=== PATIENT | female | born 1945 | race Caucasian/White ===

== ENCOUNTER → 2017-12-14 09:54 | Outpatient (CLI) | payer MEDICARE, SELFPAY ==
--- NOTE | 2017-12-14 09:58 | MM_ITS ---
MM Dig screening mamm BI w/CAD ORDERING PHYSICIAN : Flynn Sheldon PATIENT AGE: 72 years GENDER: Female COMPARISON: September 2010,, June 2016, May 2015 bilateral mammogram studies INDICATION: ITS.REASON: SCREENING no hormones. No new complaints. Multiple Previous excisional biopsies. Right and left breast but Family history. 2 sisters with breast cancer. 49 and other 50 results TECHNIQUE: Standard CC and MLO images were obtained. R2 CAD reviewed. FINDINGS: Low-density breast bilaterally. Generalized fatty replacement. With minimal residual fibroglandular elements. No suspicious lesions. No dominant mass. No suspicious calcifications. Bilateral follow-up in one year adequate. IMPRESSION: Stable bilateral mammogram with no significant new findings BI-RADS Category: 1 Negative RECOMMENDED FOLLOW-UP: 1YR 1 YEAR FOLLOW-UP (A letter has been sent to the patient regarding results of the study.)
== END ==
PROVIDERS: Family Provider Internal Medicine; PCP Internal Medicine; Visit Provider Internal Medicine
DX: Z12.31 Encounter for screening mammogram for malignant neoplasm of breast (principal)
CPT/HCPCS: 77067

== ENCOUNTER → 2018-11-28 12:51 | Outpatient (CLI) | payer MEDICARE, SELFPAY ==
--- NOTE | 2018-11-28 13:03 | NVE_ITS ---
Venous Exam Indications: 729.5 Pain in limb. IMPRESSIONS 1. There is no evidence of significant Reflux. 2. No evidence of deep or superficial vein thrombosis involving the right lower extremity Right lower extremity venous duplex evaluation. Doppler flow study including spectral analysis, color and benítez scale imaging. Location: Vascular laboratory. Patient status: Outpatient. Tables: Venous flow and imaging: + +-------+ + Location Overall Flow properties + +-------+ + Right common femoral Patent Normal phasicity; spontaneous; normal augmentation; compressible + +-------+ + Right saphenofemoral junction Patent Compressible + +-------+ + Right profunda femoral Patent Compressible + +-------+ + Right femoral Patent Normal phasicity; spontaneous; normal augmentation; compressible + +-------+ + Right greater saphenous Patent Normal phasicity; spontaneous; normal augmentation; compressible + +-------+ + Right popliteal Patent Normal phasicity; spontaneous; normal augmentation; compressible + +-------+ + Right posterior tibial Patent Compressible + +-------+ + Right peroneal Patent Compressible + +-------+ + Right gastrocnemius Patent Compressible + +-------+ + Right soleal Patent Compressible + +-------+ + (Report amended ) Electronically signed by: Rafael Pizano [id number]
== END ==
PROVIDERS: PCP Internal Medicine; Visit Provider Internal Medicine
DX: M79.661 Pain in right lower leg (principal)
CPT/HCPCS: 93971

== ENCOUNTER 2019-10-15 09:07 | Emergency (ER) | payer MEDICARE, SELFPAY ==
[2019-10-15 09:08] VITALS: BP 110/60; PULSE 87; RESP 16; TEMP 36.6; O2SAT 98; BMI 25.6; BMI 26.6
--- NOTE | 2019-10-15 09:25 | XR_ITS ---
PROCEDURE: XR FOOT RT MIN 3V CLINICAL INDICATION: injury COMPARISON: FTR3 FOOT-RT-3 VIEWS from 12/14/2012 FINDINGS: No fracture or dislocation. No lytic or blastic change. There is normal mineralization. The joint spaces are well-preserved. No significant degenerative/arthritic changes. No erosive changes evident. Other findings:None. IMPRESSION: No acute findings. Dictated by: Celestino Bernabe 10/15/2019 09:42 Electronically signed by Celestino Bernabe in [place] 10/15/2019 09:42
--- NOTE | 2019-10-15 10:18 | PC.NURSE ---
placing post op shoe on pt at this time.
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
[2019-10-15 11:05] VITALS: BP 120/74; PULSE 78; RESP 16; TEMP 36.6; O2SAT 98
== END 2019-10-15 11:06 | disposition home or self-care (01) ==
PROVIDERS: Emergency Provider Family Medicine; PCP Internal Medicine
DX: S90.31XA Contusion of right foot, initial encounter (principal); W22.8XXA Striking against or struck by other objects, initial encounter; Y92.019 Unspecified place in single-family (private) house as the place of occurrence of the external cause; F17.210 Nicotine dependence, cigarettes, uncomplicated; Z88.5 Allergy status to narcotic agent; Z88.8 Allergy status to other drugs, medicaments and biological substances
CPT/HCPCS: 73630; 99282

== ENCOUNTER → 2020-04-28 09:44 | Outpatient (CLI) | payer MEDICARE, SELFPAY ==
--- NOTE | 2020-04-28 09:52 | MR_ITS ---
PROCEDURE: MR HEAD/BRAIN WO CON CLINICAL INDICATION: SYNCOPE, FATIGUE, CONFUSION. COMPARISON: No exams were available for comparison TECHNIQUE: Routine multiplanar multi echo sequences are performed without gadolinium enhancement. FINDINGS: No midline shift, mass effect, intracranial hemorrhage, or hydrocephalus is evident. The cerebellopontine angles, cerebellum, and brainstem have an unremarkable appearance. No evidence of acute infarction. There is generalized atrophy. There are scattered areas of periventricular and subcortical T2 white matter hyperintensity as well as a small area of increased T2 signal in the left tom. This may be due to ischemic gliotic foci from microvascular disease. The pituitary, optic chiasm, corpus callosum, and craniocervical junction have an unremarkable appearance. There is degenerative disc disease at C4-C5 with bulging disc which abuts the anterior aspect of the cord with canal stenosis. This may be better evaluated with MRI of the cervical spine if clinically desired. No mastoid effusion or sinus air-fluid level is evident. IMPRESSION: 1. No acute intracranial finding. 2. Atrophy with chronic ischemic gliotic changes. 3. Degenerative disc disease at C4-C5 with bulging disc and canal stenosis. Dictated by: Rafael Pizano MD 04/28/2020 13:26 Rafael Pizano MD in [place] 04/28/2020 13:26
== END ==
PROVIDERS: PCP Internal Medicine; Visit Provider Internal Medicine
DX: R55 Syncope and collapse (principal); R53.83 Other fatigue; R41.0 Disorientation, unspecified
CPT/HCPCS: 70551

== ENCOUNTER → 2020-04-30 14:28 | Outpatient (CLI) | payer MEDICARE, SELFPAY ==
--- NOTE | 2020-04-30 | CA_ITS ---
APPROVED REPORT EXAM: Comprehensive 2D, Doppler, and color-flow Echocardiogram [employer]ade [employer] Finisher: Jessi Carroll RT(R) Ht: 5 ft 2 in Wt: 147lbs BSA: 1.68 BP: 115/80 mmHg Indications: HTN, DM, syncope, smoker, CAD, murmur, hx rheumatic fever 2D Dimensions LVOT 1.98 cm (M/F) 1.5-2.5 M-Mode Dimensions RVDd 1.13 cm (0.9-2.6) LA Diam 4.02 cm (1.9-4.0) LVDd 4.56 cm (3.5-5.7) Ao Diam 2.48 cm (2.0-3.7) LVDs 3.43 cm (3.5-5.7) IVSd 0.58 cm (0.6-1.1) PWd 0.55 cm (0.6-1.1) EF (Teich) 49.20% FS 24.80% EDV (Teich) 95.40 mL ESV (Teich) 48.50 mL LV Diastology E Decel Time 327.00 (160-240 msec) E/A Ratio 0.6 MED E' 7.30 (< 7 cm/sec) E'/MED E' Ratio 13.25 (>14) LAT E' 8.20 (<10 cm/sec) E/LAT E' Ratio 11.79 (>14) Aortic Valve LVOT Max 120.00 (70-110 cm/s) LVOT VTI 19.50 cm AoV Peak Elias. 172.00 (50-130 cm/s) AO Peak GR. 11.80 mmHg AO Mean GR. 6.40 (<5 mmHg) AO VTI 30.37 (18-25 cm) EMELI (VTI) 1.98 (2.5-4.5 cm2) Mitral Valve MV E Max Elias. 97.00 (40-130 cm/s) MV A Velocity 166.00 (40-130 cm/s) E/A Ratio 0.58 MV Decel. Time 327.00 (160-240 ms) MV PHT 96.00 ms Left Ventricle Left atrium is mildly enlarged, left ventricle is normal size, mild concentric left ventricular hypertrophy, visually estimated ejection fraction 55% with no regional wall motion abnormality, grade 1 diastolic dysfunction seen without tissue Doppler evidence of raise left atrial pressure. Right Ventricle Right atrium and right ventricle are normal size and contractility. Aortic Valve Aortic valve is minimally thickened and fibrosed, there is no aortic stenosis or aortic insufficiency. Mitral Valve Mitral valve has mitral annular calcification which extends in both anterior posterior mitral leaflet, there is no significant mitral stenosis, there is mild mitral regurgitation. Tricuspid Valve Tricuspid valve grossly normal, there is mild tricuspid regurgitation, tricuspid regurgitation jet velocity is inadequate for calculation of the right ventricular systolic pressure. Pulmonic Valve Pulmonic valve is poorly visualized. Great Vessels Aortic root is normal size. Pericardium No significant pericardial effusion noted. Conclusion 1. Mildly enlarged left atrium, normal left ventricular size, mild concentric left ventricular hypertrophy, visually estimated ejection fraction 55% with no regional wall motion abnormality, grade 1 diastolic dysfunction seen without tissue Doppler evidence of raise left atrial pressure. 2. Mitral annular calcification, there is no significant mitral stenosis, there is mild mitral regurgitation. 3. Mild tricuspid regurgitation. 4. No significant pericardial effusion noted. Electronically signed by : Octavio Burton, 04/30/2020 15:40:57
== END ==
PROVIDERS: PCP Internal Medicine; Visit Provider Internal Medicine
DX: R55 Syncope and collapse (principal)
CPT/HCPCS: 93270; 93306

== ENCOUNTER → 2020-12-18 09:40 | Outpatient (CLI) | payer MEDICARE, SELFPAY ==
--- NOTE | 2020-12-18 09:49 | XR_ITS ---
PROCEDURE: XR TIBIA FIBULA RT 2V CLINICAL INDICATION: S/P FALL, RT LATERAL LEG AND ANKLE PAIN/SWELLING COMPARISON: No exams were available for comparison FINDINGS: No fracture or dislocation. No lytic or blastic change. There is normal mineralization. The joint spaces are well-preserved. No significant degenerative/arthritic changes. No erosive changes evident. Other findings:None. IMPRESSION: No acute findings. Dictated by: Rafael Pizano MD 12/18/2020 10:10 Rafael Pizano MD in [place] 12/18/2020 10:10
--- NOTE | 2020-12-18 09:49 | XR_ITS ---
PROCEDURE: XR ANKLE RT MIN 3V this was present on 10/15/2019. CLINICAL INDICATION: S/P FALL, RT LATERAL LEG AND ANKLE PAIN/SWELLING COMPARISON: CR XR FOOT RT MIN 3V from 10/15/2019 CR XR TIBIA FIBULA RT 2V from 12/18/2020 FINDINGS: No fracture or dislocation. No lytic or blastic change. There is normal mineralization. The joint spaces are well-preserved. No significant degenerative/arthritic changes. No erosive changes evident. Other findings:Well-circumscribed 5 mm calcific density is present at the tip of the lateral malleolus consistent with an unfused ossification center or old fracture. IMPRESSION: No acute findings. Dictated by: Rafael Pizano MD 12/18/2020 10:09 Rafael Pizano MD in [place] 12/18/2020 10:09
== END ==
PROVIDERS: PCP Internal Medicine; Visit Provider Internal Medicine
DX: M25.571 Pain in right ankle and joints of right foot (principal)
CPT/HCPCS: 73590; 73610

== ENCOUNTER → 2021-05-03 10:19 | Outpatient (CLI) | payer MEDICARE, SELFPAY ==
--- NOTE | 2021-05-03 10:27 | XR_ITS ---
FINAL REPORT CLINICAL HISTORY: SOA,CONGESTION,COUGH FINDINGS: 2 views of the chest were obtained . The heart is normal in size. The mediastinum is within normal limits. There is a calcified granuloma in the right lung. The lungs are otherwise clear. There is no pneumothorax. Osseous structures are unremarkable. IMPRESSION: No acute cardiopulmonary process. Reviewed, Interpreted and Dictated by Bakari Ferrara III, MD Transcribed by Elizabeth Geller Authenticated by Bakari Ferrara III, MD on 05/03/2021 04:18:24 PM [facility]
== END ==
PROVIDERS: PCP Internal Medicine; Visit Provider Internal Medicine
DX: R06.02 Shortness of breath (principal); R09.89 Other specified symptoms and signs involving the circulatory and respiratory systems; Z20.822 Contact with and (suspected) exposure to COVID-19; R05.9 Cough, unspecified
CPT/HCPCS: 71046; C9803; U0003; U0005

== ENCOUNTER → 2021-05-03 11:21 | Outpatient (CLI) | payer MEDICARE, SELFPAY | PROVIDERS: PCP Internal Medicine; Visit Provider Nurse Practitioner | DX: U07.1 COVID-19 (principal) | CPT/HCPCS: C9803; U0003; U0005 ==

== ENCOUNTER → 2021-06-21 12:34 | Outpatient (CLI) | payer MEDICARE, SELFPAY ==
[2021-06-21 14:26] LABS: Basophils # 0.1 K/mm3 (0-0.2); Basophils % 1.3 % (0.1-2.0); Eosinophils # 0.2 K/mm3 (0.0-0.4); Hematocrit 40.7 % (37.0-47.0); Hemoglobin 13.4 g/dL (12.2-16.2); Lymphocytes # 1.6 K/mm3 (0.7-4.5); Lymphocytes % 21.6 % (10-50); Mean Corpuscular Hemoglobin 29.6 pg (27.0-31.2); Mean Corpuscular Volume 89.6 fl (81-99); Mean Platelet Volume 10.1 fl (7.4-10.4); Monocytes # 0.5 K/mm3 (0.1-1.0); Monocytes % 6.3 % (1.7-9.3); Neutrophils # 4.9 K/mm3 (1.8-7.8); Neutrophils % 67.8 % (37.0-80.0); Platelet Count 266 K/mm3 (142-424); Red Blood Count 4.54 M/mm3 (4.20-5.40); Red Cell Distribution Width 14.4 % (11.5-17.5); White Blood Count 7.3 K/mm3 (4.8-10.8)
[2021-06-21 15:22] LABS: Alanine Aminotransferase 16 U/L (12-78); Albumin Level 4.2 g/dl (3.5-5.0); Alkaline Phosphatase 80 U/L (38-126); Anion Gap 9.5 mEq/L (5-15); Aspartate Amino Transferase 25 U/L (14-36); Bilirubin,Total 0.4 mg/dl (0.2-1.3); Blood Urea Nitrogen 20 mg/dl (7-17); Calcium 8.7 mg/dl (8.4-10.2); Carbon Dioxide 28 mmol/L (22.0-30.0); Chloride 105 mmol/L (98-107); Cholesterol 183 mg/dl (140-200); Estimated Glomerular Filt Rate 70 ml/min (>60); GFR (African American) 85 ML/MIN (>60); Globulin 2.1 g/dL (1.3-3.2); Glucose 136 mg/dl (74-100); HDL Cholesterol 46 mg/dl (40-60); Potassium 4.5 mmoL/L (3.5-5.1); Sodium 138 mmol/L (136-145); Total Protein,Serum 6.3 g/dl (6.3-8.2); Triglycerides 101 mg/dl (30-150); VLDL Cholesterol 20 mg/dL (0-40)
[2021-06-21 15:27] LABS: Hemoglobin A1C 6.9 % (4.0-6.0)
[2021-06-21 15:33] LABS: Direct LDL Cholesterol 121.19 mg/dL (100-129)
[2021-06-21 15:52] LABS: Thyroid Stimulating Hormone 2.28 uIU/mL (0.465-4.68)
== END ==
PROVIDERS: Visit Provider Internal Medicine
DX: I10 Essential (primary) hypertension (principal); E03.9 Hypothyroidism, unspecified; E11.40 Type 2 diabetes mellitus with diabetic neuropathy, unspecified; J44.9 Chronic obstructive pulmonary disease, unspecified; M79.7 Fibromyalgia; Z79.84 Long term (current) use of oral hypoglycemic drugs
CPT/HCPCS: 80053; 80061; 83036; 84443; 85025

== ENCOUNTER → 2021-06-25 15:36 | Outpatient (CLI) | payer MEDICARE, SELFPAY ==
--- NOTE | 2021-06-25 15:38 | MM_ITS ---
PROCEDURE INFORMATION: Exam: MG Bilateral Screening 3D Mammography Exam date and time: 06/25/2021 3:38 PM Age: 76 years old Clinical indication: Encounter for screening mammogram for malignant neoplasm of breast . Strong family history of premenopausal breast carcinoma. TECHNIQUE: Imaging protocol: Bilateral Screening tomosynthesis and 2D mammography including computer-aided detection (CAD) when performed. COMPARISON: 1. MG SCBI MM Dig screening mamm BI w/CAD 12/14/2017 10:07 AM 2. MG DMDXUAVL DIG MAMM-DX UNI A/VWS-LT W/CAD 07/26/2016 2:23 PM 3. MG DMSB DIG MAMM-SCREEN DOMENICO W/CAD 07/14/2016 9:25 AM FINDINGS: MAMMOGRAPHY: Breast composition: There are scattered areas of fibroglandular density. Mass: No suspicious masses. Architectural distortion: No suspicious distortion. Calcifications: No suspicious calcifications. Asymmetric density: None. Skin thickening: None. Axillary adenopathy: None. IMPRESSION: No mammographic evidence of malignancy. Annual screening is recommended unless otherwise clinically indicated. ASSESSMENT: BI-RADS Category 1: Negative
== END ==
PROVIDERS: PCP Internal Medicine; Visit Provider Internal Medicine
DX: Z12.31 Encounter for screening mammogram for malignant neoplasm of breast (principal)
CPT/HCPCS: 77063; 77067

== ENCOUNTER → 2021-09-02 12:51 | Outpatient (CLI) | payer MEDICARE, SELFPAY ==
[2021-09-02 13:45] VITALS: PULSE 75
--- NOTE | 2021-09-02 14:42 | CT_ITS ---
FINAL REPORT CLINICAL HISTORY: . lung screening, current smoker, 1/2 pack per day x 68 years FINDINGS: CT CHEST SCREENING CTDI vol (mGy): 2.90 DLP (mGy-cm): 101.86 Axial images were obtained from the lung apex to the mid abdomen by computed tomography. Low-dose protocol was utilized. FINDINGS: CHEST: There is no axillary adenopathy. There is no hilar or mediastinal adenopathy. The heart is proper size. There is no pericardial or pleural effusion. Limited images of the upper abdomen demonstrate post cholecystectomy. Lung window images demonstrate mild scarring. There is a 5 mm left lower lobe nodule on image 45. There is a calcified granuloma in the right lower lobe. There is a 2 mm left lower lobe nodule on image 37. No other nodules identified. IMPRESSION: Lung RADS category 2. Recommend 12 month follow-up low-dose chest CT. Left lower lobe nodules as above. Reviewed, Interpreted and Dictated by Bakari Ferrara III, MD Transcribed by Bettina Lora Authenticated by Bakari Ferrara III, MD on 09/02/2021 04:49:19 PM [facility]
[2021-09-02 15:22] LABS: Basophils # 0.3 K/mm3 (0-0.2); Basophils % 3.5 % (0.1-2.0); Eosinophils # 0.3 K/mm3 (0.0-0.4); Eosinophils % 3.8 % (0.1-12.0); Hematocrit 44.6 % (37.0-47.0); Hemoglobin 14.8 g/dL (12.2-16.2); Lymphocytes # 2.2 K/mm3 (0.7-4.5); Lymphocytes % 27.1 % (10-50); Mean Corpuscular HGB Conc 33.2 g/dL (31.8-35.4); Mean Corpuscular Hemoglobin 29.5 pg (27.0-31.2); Mean Corpuscular Volume 88.8 fl (81-99); Mean Platelet Volume 7.9 fl (7.4-10.4); Monocytes # 0.5 K/mm3 (0.1-1.0); Monocytes % 6.2 % (1.7-9.3); Neutrophils # 4.8 K/mm3 (1.8-7.8); Neutrophils % 59.4 % (37.0-80.0); Platelet Count 278 K/mm3 (142-424); Red Blood Count 5.02 M/mm3 (4.20-5.40); White Blood Count 8.1 K/mm3 (4.8-10.8)
[2021-09-02 15:27] LABS: D-Dimer 0.73 ug/mL (0.0-0.5)
[2021-09-12 11:09] LABS: D001-IgE D pteronyssinus <0.10 kU/L (Class 0); D002-IgE D farinae <0.10 kU/L (Class 0); E001-IgE Cat Dander <0.10 kU/L (Class 0); E005-IgE Dog Dander <0.10 kU/L (Class 0); E072-IgE Mouse Urine <0.10 kU/L (Class 0); G002-IgE Bermuda Grass <0.10 kU/L (Class 0); G006-IgE Timothy Grass <0.10 kU/L (Class 0); I006-IgE Cockroach, German <0.10 kU/L (Class 0); Immunoglobulin E, Total 2 IU/mL (6-495); M001-IgE Penicillium chrysogen <0.10 kU/L (Class 0); M002-IgE Cladosporium herbarum <0.10 kU/L (Class 0); M003-IgE Aspergillus fumigatus <0.10 kU/L (Class 0); M006-IgE Alternaria alternata <0.10 kU/L (Class 0); T001-IgE Maple/Box Elder <0.10 kU/L (Class 0); T003-IgE Common Silver Birch <0.10 kU/L (Class 0); T006-IgE Cedar, Mountain <0.10 kU/L (Class 0); T007-IgE Oak, White <0.10 kU/L (Class 0); T008-IgE Elm, American <0.10 kU/L (Class 0); T010-IgE Walnut <0.10 kU/L (Class 0); T011-IgE Maple Leaf Sycamore <0.10 kU/L (Class 0); T014-IgE Cottonwood <0.10 kU/L (Class 0); T015-IgE Ash, White <0.10 kU/L (Class 0); T022-IgE Pecan, Hickory <0.10 kU/L (Class 0); T070-IgE White Mulberry <0.10 kU/L (Class 0); W001-IgE Ragweed, Short <0.10 kU/L (Class 0); W011-IgE Thistle, Russian <0.10 kU/L (Class 0); W014-IgE Pigweed, Common <0.10 kU/L (Class 0); W018-IgE Sheep Sorrel <0.10 kU/L (Class 0)
== END ==
PROVIDERS: PCP Internal Medicine; Visit Provider Internal Medicine Pulmonary Disease
DX: J45.909 Unspecified asthma, uncomplicated (principal); F17.210 Nicotine dependence, cigarettes, uncomplicated
CPT/HCPCS: 36415; 71271; 82785; 85025; 85378; 86003; 94060; 94618; 94640; 94727; 94729

== ENCOUNTER → 2021-09-13 09:43 | Outpatient (CLI) | payer MEDICARE, SELFPAY ==
--- NOTE | 2021-09-13 09:44 | NM_ITS ---
FINAL REPORT TECHNIQUE: The patient was injected with 7.90 mCi of technetium 99m MAA. 33.4 mCi of aerosolized DTPA was utilized for ventilation. Images of the lungs were obtained in multiple projections. CLINICAL HISTORY: SOB recent cxr and ct lung screening 10:30am 33.4 mci tc dtpa 11:05am 7.90 mci tc maa FINDINGS: There are no segmental diffusion defects. There are no mismatch defects to suggest pulmonary embolism. IMPRESSION: Low probability for pulmonary embolism. Reviewed, Interpreted and Dictated by Anahy Forrest MD Transcribed by Ellen Cruz Authenticated by Anahy Forrest MD on 09/13/2021 01:21:36 PM [facility]
== END ==
PROVIDERS: PCP Internal Medicine; Visit Provider Internal Medicine Pulmonary Disease
DX: R79.89 Other specified abnormal findings of blood chemistry (principal); R06.09 Other forms of dyspnea
CPT/HCPCS: 78582; A9540; A9567

== ENCOUNTER → 2021-12-17 14:44 | Outpatient (CLI) | payer MEDICARE, SELFPAY ==
[2021-12-17 15:41] LABS: Hemoglobin A1C 6.2 % (4.0-6.0)
[2021-12-17 17:43] LABS: Alanine Aminotransferase 16 U/L (12-78); Albumin Level 3.9 g/dl (3.5-5.0); Albumin/Globulin Ratio 1.7 (1.1-1.8); Alkaline Phosphatase 99 U/L (38-126); Anion Gap 12.8 mEq/L (5-15); Aspartate Amino Transferase 25 U/L (14-36); Blood Urea Nitrogen 16 mg/dl (7-17); Calcium 8.7 mg/dl (8.4-10.2); Carbon Dioxide 25 mmol/L (22.0-30.0); Chloride 108 mmol/L (98-107); Chol/HDL Ratio 3.9 (1-3.5); Cholesterol 176 mg/dl (140-200); Estimated Glomerular Filt Rate 61 ml/min (>60); GFR (African American) 74 ML/MIN (>60); Globulin 2.3 g/dL (1.3-3.2); Glucose 132 mg/dl (74-100); HDL Cholesterol 45 mg/dl (40-60); Magnesium 1.7 mg/dl (1.6-2.3); Potassium 4.8 mmoL/L (3.5-5.1); Sodium 141 mmol/L (136-145); Total Protein,Serum 6.2 g/dl (6.3-8.2); Triglycerides 76 mg/dl (30-150); VLDL Cholesterol 15 mg/dL (0-40)
[2021-12-17 17:59] LABS: Bilirubin,Total < 0.1 mg/dl (0.2-1.3)
[2021-12-19 10:01] LABS: Direct LDL Cholesterol 106 mg/dL (100-129)
== END ==
PROVIDERS: PCP Internal Medicine; Visit Provider Internal Medicine
DX: E11.42 Type 2 diabetes mellitus with diabetic polyneuropathy (principal); E78.5 Hyperlipidemia, unspecified; K75.81 Nonalcoholic steatohepatitis (NASH); M79.7 Fibromyalgia; I10 Essential (primary) hypertension; Z79.84 Long term (current) use of oral hypoglycemic drugs
CPT/HCPCS: 80053; 80061; 83036; 83735

== ENCOUNTER → 2022-03-22 08:59 | Outpatient (CLI) | payer MEDICARE, SELFPAY ==
--- NOTE | 2022-03-22 09:09 | XR_ITS ---
FINAL REPORT TECHNIQUE: 5 views CLINICAL HISTORY: NECK PAIN x 1 month FINDINGS: CERVICAL SPINE Five views of the cervical spine for obtained. There is no fracture present. There is 4 mm of retrolisthesis of C4 on C5. There is moderate diffuse degenerative disc disease. There is bony neural foraminal narrowing bilaterally most pronounced at C4-5. IMPRESSION: Moderate degenerative changes without fracture. Reviewed, Interpreted and Dictated by Summer Aleman MD Transcribed by Violette Forbes Authenticated and [facility]
== END ==
PROVIDERS: PCP Internal Medicine; Visit Provider Internal Medicine
DX: M54.2 Cervicalgia (principal)
CPT/HCPCS: 72050

== ENCOUNTER → 2022-05-13 13:27 | Outpatient (CLI) | payer MEDICARE, SELFPAY ==
[2022-05-13 13:46] LABS: Basophils # 0.1 K/mm3 (0-0.2); Basophils % 1.1 % (0.1-2.0); Eosinophils # 0.2 K/mm3 (0.0-0.4); Eosinophils % 2.6 % (0.1-12.0); Hematocrit 40.6 % (37.0-47.0); Hemoglobin 13.5 g/dL (12.2-16.2); Lymphocytes # 1.8 K/mm3 (0.7-4.5); Lymphocytes % 23.5 % (10-50); Mean Corpuscular HGB Conc 33.3 g/dL (31.8-35.4); Mean Corpuscular Hemoglobin 29.1 pg (27.0-31.2); Mean Corpuscular Volume 87.4 fl (81-99); Mean Platelet Volume 9.5 fl (7.4-10.4); Monocytes # 0.4 K/mm3 (0.1-1.0); Monocytes % 5.4 % (1.7-9.3); Neutrophils # 5.3 K/mm3 (1.8-7.8); Neutrophils % 67.5 % (37.0-80.0); Platelet Count 266 K/mm3 (142-424); Red Blood Count 4.65 M/mm3 (4.20-5.40); White Blood Count 7.8 K/mm3 (4.8-10.8)
[2022-05-13 14:40] LABS: Erythrocyte Sedimentation Rate 15 mm/hr (0-30)
[2022-05-13 15:26] LABS: Alanine Aminotransferase 17 U/L (12-78); Albumin Level 4.3 g/dl (3.5-5.0); Albumin/Globulin Ratio 1.9 (1.1-1.8); Alkaline Phosphatase 86 U/L (38-126); Amylase 62 U/L (30-110); Anion Gap 11.3 mEq/L (5-15); Aspartate Amino Transferase 25 U/L (14-36); Bilirubin,Total 0.3 mg/dl (0.2-1.3); Blood Urea Nitrogen 20 mg/dl (7-17); Calcium 8.4 mg/dl (8.4-10.2); Carbon Dioxide 26 mmol/L (22.0-30.0); Chloride 106 mmol/L (98-107); Estimated Glomerular Filt Rate 61 ml/min (>60); GFR (African American) 74 ML/MIN (>60); Globulin 2.3 g/dL (1.3-3.2); Glucose 134 mg/dl (74-100); Potassium 4.3 mmoL/L (3.5-5.1); Sodium 139 mmol/L (136-145); Total Protein,Serum 6.6 g/dl (6.3-8.2)
== END ==
PROVIDERS: PCP Internal Medicine; Visit Provider Internal Medicine
DX: E11.42 Type 2 diabetes mellitus with diabetic polyneuropathy (principal); I10 Essential (primary) hypertension; E78.5 Hyperlipidemia, unspecified; M79.7 Fibromyalgia; Z79.84 Long term (current) use of oral hypoglycemic drugs
CPT/HCPCS: 80053; 82150; 85025; 85651

== ENCOUNTER → 2022-05-23 07:53 | Outpatient (CLI) | payer MEDICARE, SELFPAY ==
--- NOTE | 2022-05-23 08:00 | CT_ITS ---
FINAL REPORT CLINICAL HISTORY: ABDOMINAL PAIN COMPARISON: 06/09/2016 FINDINGS: Axial CT images of the abdomen and pelvis were obtained without intravenous contrast. Oral contrast was administered. Coronal reformatted images were also obtained.This study was performed with techniques to keep radiation doses as low as reasonably achievable (ALARA). Individualized dose reduction techniques using automated exposure control or adjustment of mA and/or kV according to the patient's size were employed. Abdomen: There is mild bibasilar atelectasis. There is no evidence of renal stone or hydronephrosis. There are postoperative changes from cholecystectomy. The liver, spleen and pancreas have an unremarkable, unenhanced appearance. No inflammatory process is identified. There are diffuse vascular calcifications. Pelvis: Images of the pelvis reveal no evidence of ureteral dilation or ureteral stone. The appendix is normal. No mass or abnormal fluid collection is identified. There is a small right inguinal hernia containing fat. IMPRESSION: No acute intra-abdominal or intrapelvic abnormality. Reviewed, Interpreted and Dictated by Bakari Ferrara III, MD Transcribed by Violette Forbes Authenticated and [facility]
== END ==
PROVIDERS: PCP Internal Medicine; Visit Provider Internal Medicine
DX: R10.9 Unspecified abdominal pain (principal)
CPT/HCPCS: 74176

== ENCOUNTER → 2022-06-24 12:47 | Outpatient (CLI) | payer MEDICARE, SELFPAY ==
[2022-06-24 13:17] LABS: Basophils # 0.1 K/mm3 (0-0.2); Basophils % 1.2 % (0.1-2.0); Eosinophils # 0.2 K/mm3 (0.0-0.4); Eosinophils % 3.1 % (0.1-12.0); Hematocrit 42.4 % (37.0-47.0); Hemoglobin 14.1 g/dL (12.2-16.2); Lymphocytes # 1.6 K/mm3 (0.7-4.5); Lymphocytes % 21.3 % (10-50); Mean Corpuscular HGB Conc 33.2 g/dL (31.8-35.4); Mean Corpuscular Hemoglobin 28.9 pg (27.0-31.2); Mean Corpuscular Volume 87.2 fl (81-99); Mean Platelet Volume 9.1 fl (7.4-10.4); Monocytes # 0.4 K/mm3 (0.1-1.0); Monocytes % 4.9 % (1.7-9.3); Neutrophils # 5.2 K/mm3 (1.8-7.8); Neutrophils % 69.5 % (37.0-80.0); Platelet Count 266 K/mm3 (142-424); Red Blood Count 4.86 M/mm3 (4.20-5.40); White Blood Count 7.5 K/mm3 (4.8-10.8)
[2022-06-24 13:22] LABS: Creatinine,Urine Random 38 mg/dL (Not Estab.)
[2022-06-24 13:26] LABS: Microalbumin/Creatinine Ratio 16.8
[2022-06-24 13:33] LABS: Hemoglobin A1C 6.4 % (4.0-6.0)
[2022-06-24 14:48] LABS: Alanine Aminotransferase 16 U/L (12-78); Albumin Level 4.4 g/dl (3.5-5.0); Albumin/Globulin Ratio 2.2 (1.1-1.8); Alkaline Phosphatase 89 U/L (38-126); Anion Gap 11.6 mEq/L (5-15); Aspartate Amino Transferase 26 U/L (14-36); Bilirubin,Total 0.4 mg/dl (0.2-1.3); Blood Urea Nitrogen 21 mg/dl (7-17); Calcium 8.9 mg/dl (8.4-10.2); Carbon Dioxide 26 mmol/L (22.0-30.0); Chloride 104 mmol/L (98-107); Chol/HDL Ratio 3.6 (1-3.5); Cholesterol 182 mg/dl (140-200); Estimated Glomerular Filt Rate 54 ml/min (>60); GFR (African American) 65 ML/MIN (>60); Glucose 141 mg/dl (74-100); HDL Cholesterol 51 mg/dl (40-60); Potassium 4.6 mmoL/L (3.5-5.1); Sodium 137 mmol/L (136-145); Total Protein,Serum 6.4 g/dl (6.3-8.2); Triglycerides 84 mg/dl (30-150); VLDL Cholesterol 17 mg/dL (0-40)
[2022-06-24 14:58] LABS: Direct LDL Cholesterol 112.95 mg/dL (100-129)
[2022-06-24 15:19] LABS: Thyroid Stimulating Hormone 4.28 uIU/mL (0.465-4.68)
[2022-06-27 11:22] LABS: T4 (Thyroxine) 8.7 ug/dl (5.53-11.0)
== END ==
PROVIDERS: PCP Internal Medicine; Visit Provider Internal Medicine
DX: E03.9 Hypothyroidism, unspecified (principal); E11.42 Type 2 diabetes mellitus with diabetic polyneuropathy; E78.5 Hyperlipidemia, unspecified; I10 Essential (primary) hypertension; M79.7 Fibromyalgia; Z79.84 Long term (current) use of oral hypoglycemic drugs
CPT/HCPCS: 80053; 80061; 82043; 82570; 83036; 84436; 84439; 84443; 85025

== ENCOUNTER → 2022-10-13 10:57 | Outpatient (CLI) | payer MEDICARE, SELFPAY ==
--- NOTE | 2022-10-13 10:57 | CT_ITS ---
FINAL REPORT CLINICAL HISTORY: lung cancer screening, smoker, 1/2 ppd x 66 years. copd FINDINGS: CT CHEST LOW DOSE SCREENING HISTORY: Screening exam for lung cancer. Current smoker, 33 pack year smoking history DOSE: CTDIvol: 2.9 mGy, DLP: 96.38 mGy*cm COMPARISON: 09/02/2021. TECHNIQUE: Axial CT without IV contrast administration using low dose protocol FINDINGS: There is a calcified right hilar node present, as well as a calcified granuloma in the right lower lobe. The 5 mm nodule in the medial aspect of the left lower lobe seen on the prior CT is unchanged in appearance. On today's exam it is seen in image number 48. There is also a 2 mm focus of increased density seen in the left lower lobe on image number 41, also stable since the prior exam. There is mild chronic fibrotic change in the lung bases. No pulmonary lesions are seen suspicious for neoplasm. No pleural or pericardial effusion is seen . No adenopathy or mass lesion is present . IMPRESSION: 2 small nodules noted in the left lower lobe unchanged since the prior chest CT of 2021. No new parenchymal abnormalities are identified. LUNG RADS CATEGORY 2 RECOMMENDATION: 12 month LDCT follow up Reviewed, Interpreted and Dictated by Jose Juan Abbasi MD Transcribed by Val Vogel Authenticated and [facility]
== END ==
PROVIDERS: PCP Internal Medicine; Visit Provider Internal Medicine Pulmonary Disease
DX: Z87.891 Personal history of nicotine dependence (principal); Z12.2 Encounter for screening for malignant neoplasm of respiratory organs
CPT/HCPCS: 71271

== ENCOUNTER → 2022-12-30 12:59 | Outpatient (CLI) | payer MEDICARE, SELFPAY ==
[2022-12-30 15:04] LABS: Hemoglobin A1C 6.3 % (4.0-6.0)
[2022-12-30 15:05] LABS: Alanine Aminotransferase 19 U/L (12-78); Albumin Level 4.2 g/dl (3.5-5.0); Albumin/Globulin Ratio 1.7 (1.1-1.8); Alkaline Phosphatase 95 U/L (38-126); Anion Gap 13.5 mEq/L (5-15); Aspartate Amino Transferase 28 U/L (14-36); Bilirubin,Total 0.3 mg/dl (0.2-1.3); Blood Urea Nitrogen 21 mg/dl (7-17); Calcium 8.7 mg/dl (8.4-10.2); Carbon Dioxide 25 mmol/L (22.0-30.0); Chloride 105 mmol/L (98-107); Chol/HDL Ratio 4.3 (1-3.5); Cholesterol 188 mg/dl (140-200); Estimated Glomerular Filt Rate 54 ml/min (>60); GFR (African American) 65 ML/MIN (>60); Globulin 2.5 g/dL (1.3-3.2); Glucose 127 mg/dl (74-100); HDL Cholesterol 44 mg/dl (40-60); Potassium 4.5 mmoL/L (3.5-5.1); Sodium 139 mmol/L (136-145); Total Protein,Serum 6.7 g/dl (6.3-8.2); Triglycerides 126 mg/dl (30-150); VLDL Cholesterol 25 mg/dL (0-40)
[2022-12-30 15:16] LABS: Direct LDL Cholesterol 108.64 mg/dL (100-129)
[2022-12-30 15:22] LABS: 25-OH Vitamin D, Total 67.6 ng/mL (30-100)
== END ==
PROVIDERS: PCP Internal Medicine; Visit Provider Internal Medicine
DX: E11.42 Type 2 diabetes mellitus with diabetic polyneuropathy (principal); E55.9 Vitamin D deficiency, unspecified; E03.9 Hypothyroidism, unspecified; E78.5 Hyperlipidemia, unspecified; I10 Essential (primary) hypertension; K75.81 Nonalcoholic steatohepatitis (NASH); M79.7 Fibromyalgia
CPT/HCPCS: 80053; 80061; 82306; 83036

== ENCOUNTER 2023-06-30 14:38 | Outpatient (CLI) | payer MEDICARE, SELFPAY ==
[2023-06-30 15:16] LABS: Basophils # 0.1 K/mm3 (0-0.2); Basophils % 0.9 % (0.1-2.0); Eosinophils # 0.2 K/mm3 (0.0-0.4); Eosinophils % 2.7 % (0.1-12.0); Hematocrit 42.6 % (37.0-47.0); Hemoglobin 13.6 g/dL (12.2-16.2); Lymphocytes # 1.6 K/mm3 (0.7-4.5); Lymphocytes % 22.3 % (10-50); Mean Corpuscular Hemoglobin 29.4 pg (27.0-31.2); Mean Corpuscular Volume 91.9 fl (81-99); Mean Platelet Volume 8.9 fl (7.4-10.4); Monocytes # 0.4 K/mm3 (0.1-1.0); Neutrophils # 4.9 K/mm3 (1.8-7.8); Neutrophils % 68.1 % (37.0-80.0); Platelet Count 218 K/mm3 (142-424); Red Blood Count 4.64 M/mm3 (4.20-5.40); Red Cell Distribution Width 14.1 % (11.5-17.5); White Blood Count 7.2 K/mm3 (4.8-10.8)
[2023-06-30 15:35] LABS: Creatinine,Urine Random 85 mg/dL (Not Estab.)
[2023-06-30 15:41] LABS: Microalbumin/Creatinine Ratio 8.9
[2023-06-30 16:04] LABS: Alanine Aminotransferase 18 U/L (12-78); Albumin Level 4.2 g/dl (3.5-5.0); Alkaline Phosphatase 95 U/L (38-126); Anion Gap 13.7 mEq/L (5-15); Aspartate Amino Transferase 29 U/L (14-36); Bilirubin,Total 0.4 mg/dl (0.2-1.3); Blood Urea Nitrogen 20 mg/dl (7-17); Calcium 8.9 mg/dl (8.4-10.2); Carbon Dioxide 25 mmol/L (22.0-30.0); Chloride 105 mmol/L (98-107); Chol/HDL Ratio 4.2 (1-3.5); Cholesterol 180 mg/dl (140-200); Estimated Glomerular Filt Rate 61 ml/min (>60); GFR (African American) 74 ML/MIN (>60); Globulin 2.1 g/dL (1.3-3.2); Glucose 147 mg/dl (74-100); HDL Cholesterol 43 mg/dl (40-60); Potassium 4.7 mmoL/L (3.5-5.1); Sodium 139 mmol/L (136-145); Total Protein,Serum 6.3 g/dl (6.3-8.2); Triglycerides 107 mg/dl (30-150); VLDL Cholesterol 21 mg/dL (0-40)
[2023-06-30 16:15] LABS: Direct LDL Cholesterol 102.88 mg/dL (100-129)
[2023-06-30 16:17] LABS: Hemoglobin A1C 6.9 % (4.0-6.0)
[2023-06-30 16:33] LABS: Thyroid Stimulating Hormone 2.22 uIU/mL (0.465-4.68)
== END 2023-06-30 23:59 ==
LOC: LAB.DROPOF 14:38
PROVIDERS: PCP Internal Medicine; Visit Provider Internal Medicine
DX: E11.42 Type 2 diabetes mellitus with diabetic polyneuropathy (principal); I10 Essential (primary) hypertension; E03.9 Hypothyroidism, unspecified; E78.5 Hyperlipidemia, unspecified; K75.81 Nonalcoholic steatohepatitis (NASH); M79.7 Fibromyalgia; J44.9 Chronic obstructive pulmonary disease, unspecified; Z79.84 Long term (current) use of oral hypoglycemic drugs; F17.210 Nicotine dependence, cigarettes, uncomplicated
CPT/HCPCS: 80053; 80061; 82043; 82570; 83036; 84443; 85025

== ENCOUNTER 2023-07-03 09:23 | Outpatient (CLI) | payer MEDICARE, SELFPAY ==
--- NOTE | 2023-07-03 09:35 | XR_ITS ---
FINAL REPORT CLINICAL HISTORY: Left shoulder pain with decreased range of motion FINDINGS: LEFT SHOULDER Two views demonstrate no acute fracture or dislocation. There are mild degenerative changes.. The visualized bony structures are well aligned. No soft tissue abnormality is seen. IMPRESSION: Degenerative changes with no acute process. Reviewed, Interpreted and Dictated by Bakari Ferrara III, MD Transcribed by Ellen Cruz Authenticated and [facility]
--- NOTE | 2023-07-03 09:36 | XR_ITS ---
FINAL REPORT CLINICAL HISTORY: Left knee pain FINDINGS: LEFT KNEE: Three views of the left knee were obtained. There is no acute fracture or dislocation. There are mild degenerative changes. There is a small joint effusion. Mild vascular calcifications are noted. Soft tissues are unremarkable. IMPRESSION: Mild degenerative changes with a small joint effusion. Reviewed, Interpreted and Dictated by Bakari Ferrara III, MD Transcribed by Ellen Cruz Authenticated and [facility]
== END 2023-07-03 23:59 ==
PROVIDERS: PCP Internal Medicine; Visit Provider Internal Medicine
DX: M25.512 Pain in left shoulder (principal); M25.561 Pain in right knee
CPT/HCPCS: 73030; 73562

== ENCOUNTER 2023-09-05 09:36 | Day surgery (SDC) | payer MEDICARE, SELFPAY ==
[2023-08-31 14:08] VITALS: BMI 27.8
[2023-09-05] MEDS: PHENYLEPHRINE 2.5% OPHTH SOLN 2ML OP ×3 (11:00→11:01)
[2023-09-05] MEDS: TETRACAINE 0.5% OPTH SOL 15ML OP ×3 (11:00→11:01)
[2023-09-05] MEDS: CYCLOPENTOLATE 2% OPHTH SOLN 2ML BOTTLE OP ×3 (11:00→11:01)
[2023-09-05 11:05] VITALS: BP 145/88; PULSE 72; RESP 18; TEMP 36.5; O2SAT 98
[2023-09-05 11:18] LABS: POC Glucose,Bedside 122 (70-110)
[2023-09-05 11:56] VITALS: BP 173/95; PULSE 73; RESP 18; TEMP 36.6; O2SAT 97
[2023-09-05 12:01] VITALS: BP 173/90; PULSE 79; RESP 18; TEMP 36.6; O2SAT 98
[2023-09-05] MEDS: TIMOLOL 0.5% OPTH SOLN 5ML OP (12:04)
[2023-09-05 12:06] VITALS: BP 175/83; PULSE 79; RESP 18; TEMP 36.6; O2SAT 99
[2023-09-05] MEDS: TOBRAMYCIN/DEX OPTH SUSP 2.5ML OP (12:06)
[2023-09-05] MEDS: LIDOCAINE 1% PF 2ML AMPULE 2 ML IJ (12:07)
[2023-09-05] MEDS: MIDAZOLAM 2MG/2ML VIAL 1 MG IV (12:07)
[2023-09-05] MEDS: SODIUM CHLORIDE 0.9% 10ML FLUSH SYRINGE 10 ML IV (12:08)
[2023-09-05 12:11] VITALS: BP 164/78; PULSE 78; RESP 18; TEMP 36.6; O2SAT 98
--- NOTE | 2023-09-05 12:35 | P.PCN_ITS ---
[facility] Procedure Note Date: 09/05/23 Time: 12:35 Procedure Note:: Preoperative Diagnosis: Cataract combined NS Cortical Complex [Right] Eye Postop diagnosis: same Operation: Microscopic phacoemulsification with intraocular lens implant [Right] Eye Specimen: None Blood Loss: None The patient was examined in the office with a complaint of poor vision in the [right] eye. The patient reports that this interferes with ADLs such as reading, watching TV and/or driving or the vision is like looking through a foggy haze and is very troubling. The patient was examined and found to have a visually significant cataract with best corrected vision of [20/400] by refraction and/or glare testing. Treatment options, risks and benefits were explained and the patient elected to have cataract surgery in an attempt to improve their vision. The patient had the eye anesthetized with topical tetracaine, the eye ways prepped and draped in the usual fashion for cataract surgery. A paracentesis and a temporal keratotomy were made. 0.2cc of 1% lidocaine PF was placed into the anterior chamber. And aqueous/viscoelastic exchange was done and a 360 degree capsulorexis was performed. Through hydrodissection and delineation with BSS on a cannula was done. The lens nucleus was phecoemulsified with CDE of [7.09]. Residual cortical material was removed using automated I&A The capsular bag was deepened with viscoelastica and a PCIOL was placed in the capsular bag with good centration and stability. Residual viscoelastic was removed using automated I&A. The keratotomy incision was hydrated with BSS on a cannula. The wound were checked and found to be water tight. IOP was checked digitally and adjusted as needed so as not to be too high. 1 drop of timolol 0.5%, ofloxacin, prednisolone acetate and ketorolac was instilled and eye shield taped over the eye. The patient was taken to recovery in good condition and will be seen postoperatively.
== END 2023-09-05 12:32 | disposition home or self-care (01) ==
PROVIDERS: PCP Internal Medicine; Visit Provider Ophthalmology
PROC: (CPT 66984; principal; 2023-09-05 12:30)
DX: H25.11 Age-related nuclear cataract, right eye (principal); E11.36 Type 2 diabetes mellitus with diabetic cataract; H53.8 Other visual disturbances; Z79.84 Long term (current) use of oral hypoglycemic drugs
CPT/HCPCS: 66984; 82962; V2632

== ENCOUNTER 2023-09-19 09:35 | Day surgery (SDC) | payer MEDICARE, SELFPAY ==
[2023-09-14 11:02] VITALS: BMI 28.1
[2023-09-19 10:46] VITALS: BP 136/71; PULSE 72; RESP 18; TEMP 36.6; O2SAT 99
[2023-09-19] MEDS: TETRACAINE 0.5% OPTH SOL 15ML OP ×3 (10:54→10:55)
[2023-09-19] MEDS: LACTATED RINGERS 1000ML 1,000 ML 25 ML IV (10:54)
[2023-09-19] MEDS: CYCLOPENTOLATE 2% OPHTH SOLN 2ML BOTTLE OP ×3 (10:54→10:56)
[2023-09-19] MEDS: PHENYLEPHRINE 2.5% OPHTH SOLN 2ML OP ×3 (10:55→10:56)
[2023-09-19 11:06] LABS: POC Glucose,Bedside 155 (70-110)
[2023-09-19 12:13] VITALS: BP 149/66; PULSE 77; RESP 18; TEMP 36.6; O2SAT 96
[2023-09-19 12:18] VITALS: BP 143/67; PULSE 72; RESP 18; TEMP 36.6; O2SAT 96
[2023-09-19] MEDS: MIDAZOLAM 2MG/2ML VIAL 1 MG IV (12:21)
[2023-09-19] MEDS: LIDOCAINE 1% PF 2ML AMPULE 2 ML IJ (12:22)
[2023-09-19 12:23] VITALS: BP 160/74; PULSE 75; RESP 18; TEMP 36.6; O2SAT 97
[2023-09-19] MEDS: TIMOLOL 0.5% OPTH SOLN 5ML OP (12:24)
[2023-09-19] MEDS: TOBRAMYCIN/DEX OPTH SUSP 2.5ML OP (12:24)
[2023-09-19 12:28] VITALS: BP 148/69; PULSE 78; RESP 18; TEMP 36.6; O2SAT 97
[2023-09-19 14:11] VITALS: BP 151/73; PULSE 74; RESP 18; TEMP 36.8; O2SAT 92
--- NOTE | 2023-10-03 13:23 | HMH.PROCNOTE ---
[facility] Procedure Note Date: 09/19/23 Time: 13:23 Procedure Note:: Preoperative Diagnosis: Cataract combined NS Cortical Complex [Left] Eye Postop diagnosis: same Operation: Microscopic phacoemulsification with intraocular lens implant [Left] Eye Specimen: None Blood Loss: None The patient was examined in the office with a complaint of poor vision in the [left] eye. The patient reports that this interferes with ADLs such as reading, watching TV and/or driving or the vision is like looking through a foggy haze and is very troubling. The patient was examined and found to have a visually significant cataract with best corrected vision of [20/100] by refraction and/or glare testing. Treatment options, risks and benefits were explained and the patient elected to have cataract surgery in an attempt to improve their vision. The patient had the eye anesthetized with topical tetracaine, the eye ways prepped and draped in the usual fashion for cataract surgery. A paracentesis and a temporal keratotomy were made. 0.2cc of 1% lidocaine PF was placed into the anterior chamber. And aqueous/viscoelastic exchange was done and a 360 degree capsulorexis was performed. Through hydrodissection and delineation with BSS on a cannula was done. The lens nucleus was phecoemulsified with CDE of [7.40]. Residual cortical material was removed using automated I&A The capsular bag was deepened with viscoelastica and a PCIOL was placed in the capsular bag with good centration and stability. Residual viscoelastic was removed using automated I&A. The keratotomy incision was hydrated with BSS on a cannula. The wound were checked and found to be water tight. IOP was checked digitally and adjusted as needed so as not to be too high. 1 drop of timolol 0.5%, ofloxacin, prednisolone acetate and ketorolac was instilled and eye shield taped over the eye. The patient was taken to recovery in good condition and will be seen postoperatively.
== END 2023-09-19 12:50 | disposition home or self-care (01) ==
PROVIDERS: PCP Internal Medicine; Visit Provider Ophthalmology
PROC: (CPT 66984; principal; 2023-09-19 12:30)
DX: H25.12 Age-related nuclear cataract, left eye (principal); E11.8 Type 2 diabetes mellitus with unspecified complications; Z79.84 Long term (current) use of oral hypoglycemic drugs
CPT/HCPCS: 66984; 82962; J7120; V2632

== ENCOUNTER 2023-10-02 16:39 | Outpatient (CLI) | payer MEDICARE, SELFPAY ==
[2023-10-02 16:11] LABS: Hemoglobin A1C 6.7 % (4.0-6.0)
== END 2023-10-02 23:59 | disposition home or self-care (01) ==
LOC: LAB.DROPOF 16:39
PROVIDERS: PCP Internal Medicine; Visit Provider Internal Medicine
DX: E11.49 Type 2 diabetes mellitus with other diabetic neurological complication (principal); Z79.84 Long term (current) use of oral hypoglycemic drugs
CPT/HCPCS: 83036

== ENCOUNTER 2023-10-16 13:05 | Outpatient (CLI) | payer MEDICARE, SELFPAY ==
--- NOTE | 2023-10-16 13:05 | CT_ITS ---
FINAL REPORT TECHNIQUE: Axial CT images of the chest were obtained without contrast. Low-dose protocol was utilized. This study was performed with techniques to keep radiation doses as low as reasonably achievable (ALARA). Individualized dose reduction techniques using automated exposure control or adjustment of mA and/or kV according to the patient's size were employed. CLINICAL HISTORY: lung cancer screening smoker 60 years, 1 ppd hx copd COMPARISON: 10/13/2022 FINDINGS: CT CHEST WITHOUT, LOW DOSE SCREENING CT Di Vol: 2.90 mGy DLP: 89.08 mGy*cm There is no axillary, mediastinal, or hilar adenopathy. The heart size is normal. There is no pleural or pericardial effusion. The lung windows show an oval 5 mm nodule in the left lower lobe best seen on image 178, stable to slightly smaller than previous. No new pulmonary lesions identified. Limited images of the upper abdomen demonstrate no acute finding. IMPRESSION: LR Category 2: 12 month follow-up low-dose chest CT is recommended. Reviewed, Interpreted and Dictated by Summer Aleman MD Transcribed by Bettina Lora Authenticated and [facility]
== END 2023-10-16 23:59 | disposition home or self-care (01) ==
LOC: RAD 13:05
PROVIDERS: PCP Internal Medicine; Visit Provider Internal Medicine Pulmonary Disease
DX: F17.210 Nicotine dependence, cigarettes, uncomplicated (principal)
CPT/HCPCS: 71271

== ENCOUNTER 2024-01-02 14:52 | Outpatient (CLI) | payer MEDICARE, SELFPAY ==
[2024-01-02 14:28] LABS: Basophils # 0.1 K/mm3 (0-0.2); Basophils % 0.8 % (0.1-2.0); Eosinophils # 0.2 K/mm3 (0.0-0.4); Eosinophils % 3.1 % (0.1-12.0); Hematocrit 43.8 % (37.0-47.0); Hemoglobin 13.7 g/dL (12.2-16.2); Lymphocytes # 1.4 K/mm3 (0.7-4.5); Lymphocytes % 23.9 % (10-50); Mean Corpuscular HGB Conc 31.4 g/dL (31.8-35.4); Mean Corpuscular Hemoglobin 29.2 pg (27.0-31.2); Mean Corpuscular Volume 93.2 fl (81-99); Monocytes # 0.4 K/mm3 (0.1-1.0); Monocytes % 6.2 % (1.7-9.3); Neutrophils # 3.8 K/mm3 (1.8-7.8); Platelet Count 255 K/mm3 (142-424); Red Cell Distribution Width 14.6 % (11.5-17.5); White Blood Count 5.7 K/mm3 (4.8-10.8)
[2024-01-02 14:52] LABS: Alanine Aminotransferase 20 U/L (12-78); Albumin Level 3.9 g/dl (3.5-5.0); Albumin/Globulin Ratio 1.6 (1.1-1.8); Alkaline Phosphatase 83 U/L (38-126); Anion Gap 7.6 mEq/L (5-15); Aspartate Amino Transferase 30 U/L (14-36); Bilirubin,Total 0.5 mg/dl (0.2-1.3); Blood Urea Nitrogen 17 mg/dl (7-17); Carbon Dioxide 27 mmol/L (22.0-30.0); Chloride 107 mmol/L (98-107); Chol/HDL Ratio 4.1 (1-3.5); Cholesterol 183 mg/dl (140-200); Estimated Glomerular Filt Rate 70 ml/min (>60); GFR (African American) 84 ML/MIN (>60); Globulin 2.5 g/dL (1.3-3.2); Glucose 119 mg/dl (74-100); HDL Cholesterol 45 mg/dl (40-60); Potassium 4.6 mmoL/L (3.5-5.1); Sodium 137 mmol/L (136-145); Total Protein,Serum 6.4 g/dl (6.3-8.2); Triglycerides 96 mg/dl (30-150); VLDL Cholesterol 19 mg/dL (0-40)
[2024-01-02 15:03] LABS: Direct LDL Cholesterol 104.74 mg/dL (100-129)
[2024-01-02 15:29] LABS: Hemoglobin A1C 6.6 % (4.0-6.0)
== END 2024-01-02 23:59 | disposition home or self-care (01) ==
LOC: LAB.DROPOF 14:53
PROVIDERS: PCP Internal Medicine; Visit Provider Internal Medicine
DX: I10 Essential (primary) hypertension (principal); E78.5 Hyperlipidemia, unspecified; E11.42 Type 2 diabetes mellitus with diabetic polyneuropathy; F17.200 Nicotine dependence, unspecified, uncomplicated; K75.81 Nonalcoholic steatohepatitis (NASH); M15.0 Primary generalized (osteo)arthritis; M54.40 Lumbago with sciatica, unspecified side; M79.7 Fibromyalgia
CPT/HCPCS: 80053; 80061; 83036; 85025

== ENCOUNTER 2024-07-09 10:20 | Outpatient (CLI) | payer MEDICARE, SELFPAY ==
[2024-07-09 18:24] LABS: Albumin Level 4.4 g/dl (3.5-5.0); Chloride 105 mmol/L (98-107); Sodium 139 mmol/L (136-145)
[2024-07-09 18:25] LABS: Potassium 4.5 mmoL/L (3.5-5.1)
[2024-07-09 18:27] LABS: Alanine Aminotransferase 18 U/L (12-78); Albumin/Globulin Ratio 2.3 (1.1-1.8); Alkaline Phosphatase 77 U/L (38-126); Anion Gap 12.5 mEq/L (5-15); Aspartate Amino Transferase 25 U/L (14-36); Blood Urea Nitrogen 19 mg/dl (7-17); Calcium 8.9 mg/dl (8.4-10.2); Carbon Dioxide 26 mmol/L (22.0-30.0); Cholesterol 171 mg/dl (140-200); Estimated Glomerular Filt Rate 61 ml/min (>60); GFR (African American) 73 ML/MIN (>60); Globulin 1.9 g/dL (1.3-3.2); Glucose 125 mg/dl (74-100); Total Protein,Serum 6.3 g/dl (6.3-8.2); Triglycerides 108 mg/dl (30-150); VLDL Cholesterol 22 mg/dL (0-40)
[2024-07-09 18:28] LABS: Chol/HDL Ratio 4.2 (1-3.5); HDL Cholesterol 41 mg/dl (40-60)
[2024-07-09 18:38] LABS: Direct LDL Cholesterol 99.38 mg/dL (100-129)
[2024-07-09 18:48] LABS: Bilirubin,Total < 0.1 mg/dl (0.2-1.3)
[2024-07-09 20:15] LABS: Hemoglobin A1C 6.5 % (4.0-6.0)
[2024-07-09 20:16] LABS: Creatinine,Urine Random 98 mg/dL (Not Estab.); Microalbumin/Creatinine Ratio 6.3
== END 2024-07-09 23:59 | disposition home or self-care (01) ==
LOC: LAB.DROPOF 07-10 09:48
PROVIDERS: PCP Internal Medicine; Visit Provider Internal Medicine
DX: E78.5 Hyperlipidemia, unspecified (principal); E11.42 Type 2 diabetes mellitus with diabetic polyneuropathy; I10 Essential (primary) hypertension; K75.81 Nonalcoholic steatohepatitis (NASH); Z79.84 Long term (current) use of oral hypoglycemic drugs; F17.210 Nicotine dependence, cigarettes, uncomplicated
CPT/HCPCS: 80053; 80061; 82043; 82570; 83036

== ENCOUNTER 2024-10-11 13:55 | Outpatient (CLI) | payer MEDICARE, SELFPAY ==
--- NOTE | 2024-10-11 14:00 | CT_ITS ---
FINAL REPORT TECHNIQUE: Thin section axial images were obtained from skull base to vertex without contrast. Coronal reconstruction images were obtained from the axial data. Exam was performed using dose reduction techniques such as automated exposure control, adjustment of the mA and kV according to patient size, and use of iterative reconstruction technique. 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 There is no hydrocephalus. There is no intracranial hemorrhage. The posterior fossa is without acute abnormality. The basilar cisterns are preserved. The soft tissues are without acute abnormality. No acute osseous abnormality is identified. IMPRESSION: No acute intracranial abnormality. Reviewed, Interpreted and Dictated by Anahy Forrest MD Transcribed by Bettina Lora Authenticated and [facility]
--- OUTSIDE RECORDS SUMMARY | 2024-10-11 14:01 | XMS_ITS | Clinical Summary ---
Author Organization Healthcare Address [address] [place] [address] Care Team Providers Care Health Information Systems Technician Name Role Phone Flynn Sheldon MD Primary Care Provider [phone] Family History Medical History Relation Name Comments Brain Tumor Daughter Cardiac disorder Father Heart failure Father Alzheimer's disease Mother Cardiac disorder Mother Hypertension Mother Stroke Mother Diabetes Sister 1 Breast cancer Sister 2 Relation Name Status Comments Daughter Father Mother Sister 1 Sister 2 Social History Tobacco Use Types Packs/Day Years Used Date Smoking Tobacco: Every Day Alcohol Use Standard Drinks/Week Comments No 0 (1 standard drink = 0.6 oz pur e alcohol) Comments Unknown Sex and Gender Information Value Date Recorded Sex Assigned at Not on file Legal Sex Female 8:56 PM EDT Gender Identity Not on file Sexual Orientation Not on file Last Filed Vital Signs Vital Sign Reading Time Taken Comments Blood Pressure - - Pulse - - Temperature - - Respiratory Rate - - Oxygen Saturation - - Inhaled Oxygen Concentration - - Weight 71.2 kg (157 lb 0.2 oz) 04/28/2014 1:15 P M EST Height 160 cm (5' 3 ) 04/28/2014 1:15 PM EST Body Mass Index 27.81 04/28/2014 1:15 PM EST Plan of Treatment Not on file Care Teams Health Information Systems Technician Relationship Specialty Start Date End Date Flynn Sheldon MD [address] [facility] [address] [place] [id number] PCP - General 09/04/20
--- OUTSIDE RECORDS SUMMARY | 2024-10-11 14:01 | XMS_ITS | Data Portability ---
Author Organization [facility] Address [address] [facility] [address] [place] [address] Care Team Providers Care Health Information Technologist Name Role Phone FLYNN REN Primary Care Provider Assessment Encounter Date Assessment Date Assessment LastModified by Organization Details LastModified Time 03/22/2017 03/22/2017 1. Chest pain x1 2. Hypertension 3. DM 4. Fibromyalgia Not available 03/22/2017 14:47:48 Plan of Treatment Reminders Order Date Submit Date Provider Last Modified By Organization Details Last Modified Time Details Appointments None recorded. Lab None recorded. Referral None recorded. Procedures None recorded. Surgeries None recorded. Imaging electrocard iogram 2016 017 [facility], [address] [place] [address] [address], [place], [address], 7 16:56:07 Medication Orders None recorded. Patient TargetsNo targets recorded. Patient Instructions Encounter Date Encounter Id Patient Instructions Last Modified By Organization Details Last Modified Time 03/22/2017 [id number] Quitting Tobacco : Care Instructions Not available 03/22/2017 14:49:16 high blood pressure: care instructions Not available 03/22/2017 14:49:16 Chest pain sympt oms will be investigated with a Lexiscan Myoview stress test. Long discussion with patient. Multiple questions answered. Will reserve a low threshold for cardiac catheterization given the patient's high risk factor profile for CAD. Given that she's only had one episode of chest discomfort and her EKG is normal sufficient to investigate with GXT. Patient is agreeable. Not available 03/22/2017 14:52:24 Reason for Referral None Reported. Results Created Date Observation Date Name Description Value Unit Range Abnormal Flag Note LastModifiedBy Organization Detail LastModifiedTime 03/24/20 17 03/22/2017 elect lashawn lee am No observ ation record ed. [email or web address] [facility] [address], [place], [address], 03/24/2017 12:09:26 Result Notes None recorded. 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 2050813 Active 2015 From Automated Load;Provi bradley: Cami Maza;Stat us: Active Not Available [facility] 6 05:16:31 Altered mental status 755661853 Active 2015 From Automated Load;Provi bradley: Cami Maza;Stat us: Active Not Available [facility] 6 05:16:31 Dizziness and giddiness 392699986 Active 2015 From Automated Load;Provi bradley: Cami Maza;Stat us: Active Not Available [facility] 6 05:16:31 Hypertens saima disorder 33156012 Active 2015 From Automated Load;Provi bradley: Cami Maza;Stat us: Active Not Available [facility] 6 05:16:31 Type 2 diabetes mellitus without complicat ion 141699367 Active 2015 From Automated Load;Provi bradley: Cami Maza;Stat us: Active Not Available [facility] 6 05:16:31 Acute chest pain 842350728 Active 2016 SANTHOSH RODRIGUEZ PA-C [address] [place], [address] , [place] [facility] 7 14:48:06 Tobacco dependenc e syndrome 22604206 Active 2016 SANTHOSH RODRIGUEZ PA-C [address] [place], [address] , [place] [facility] 7 14:48:18 Problem Notes Documentation Provider Name and Address Organization Details Recorded Time Lexiscan Cardiolite Stress Test (proc) : [facility] [address], [facility] [address]BPWBY, LINDA K (id #[id number], : 1945) [facility] [address] [place] [address] Encounter Summary - Progress Note Date Printed: 04/13/2017 Documents sent via fax will include the following message: This fax may contain sensitive and confidential personal health information that is being sent for the sole use of the intended recipient. Unintended recipients are directed to securely destroy any materials received. You are hereby notified that the unauthorized disclosure or other unlawful use of this fax or any personal health information is prohibited. If you received this fax in error, please visit [email or web address] to notify the sender and confirm that the information will be destroyed. If you do not have internet access, please call to notify the sender and confirm that the information will be destroyed. Thank you for your attention and cooperation. [ID:[id number]] Patient Shanika Castillo (71yo, F) #[id number] 1945 Patient Demographics: Address [address] [address] Work Phone Encounter Notes: Encounter Reason/DateNone recorded 04/13/2017 - 07:45AM - [facility] Procedure DocumentationStress Test - Nuclear Lexiscan:Referring Physician: TORRIE Alvarado Cc Physician: Flynn Ren MD Clinical Data: CP Medications: See above IV: IV Saline Lock #[id number] RAC LEXISCAN Dose: 0.4 mg/5mL [facility]# [id number] Expiration Date: LOT#: [id number] Resting ECG was Nuclear Medicine Dose: 10.66 mCi TC Myoview -Rest Nuclear Medicine Dose: 34.7 mCi TC Myoview - Stress Attending Nurses: JUAN Robertson RN Nuclear Tech: TIP Mcallister Attending Physician: Dr. Machado Interpreting Physician: Summer Ivory MD Results of Lexiscan Stress Test Ischemic Response: Negative Arrhythmia: None Details: EKG Report: Scanned separately STAGE BP HR Comments Restin/84 60 Inject Lexiscan: Give over 10 seconds. Inject Myoview: Injected 20 seconds after Lexiscan. Recovery: 1 Min: 164/74 93 2 Min: 156/74 88 3 Min: 154/70 81 4 Min: 142/70 79 5 Min Std Recovery: 156/80 97 Pt dry heaving at end of test. Coffee given to pt to reverse hanna 6 Min Add. Recovery: 7 Min: 8 Min: 9 Min: Attending Physician Conclusion: No CP, SOB or ST-T change. Nausea during stress test. Mikaela Machado MD Comments: Normal EKG response to infusion per Dr. Machado. Symmetric perfusion without redistribution: Negative for ischemia. Radionuclide angiogram: NML with LVEF = 69 %. Impression: Study Negative for ischemia with normal systolic function Electronically Signed by: BERNARDO IVORY MD SANTHOSH RODRIGUEZ PA-C [address] [place], [address], [facility] 04/19/2017 16:56:05 Procedures Surgical History Date Name Laterality Status Provider Name and Address Organization Details Recorded Time 04/13/20 17 Stress Test - Nuclear Lexiscan completed BERNARDO IVORY MD [address] [place], [address], [facility] 04/13/2017 10:49:43 03/22/20 17 EKG completed SANTHOHS RODRIGUEZ PA-C [address] [place], [address], [facility] 03/22/2017 14:47:28 Removal of thyroid completed [facility] 03/22/2017 13:45:10 Cholecystectomy completed [facility] 03/22/2017 13:45:33 Appendectomy completed [facility] 03/22/2017 13:45:45 Other completed [facility] 03/22/2017 13:46:03 Imaging Results None recorded. Procedure Notes None recorded. Medical Equipment None Reported. Allergies Allergen ID Allergen Name Allergen Category Reaction Reaction Severity Criticality Documentation Date Start Date Code Code System Note Provider Name and Address Organization Details Recorded Time 725941 Flagyl medicatio n Not available Not available Not available 03/17/20162015 58823 6 RxNorm Comme nt: Creat ed By: Josiane rizo Date: 8:08: 46 AM; Not Available [facility] 6 13:54:49 750039 prednison e medicatio n Not available Not available Not available 03/17/20162012 8640 RxNorm Comme nt: Creat ed By: Deep escobar;Cr eated Date: 2012 12:44 :19 PM; Not Available [facility] 6 13:54:49 239956 adhesive tape environme nt,medica tion Not available Not available Not available 03/17/20162015 48588 UNK Comme nt: Creat ed By: Josiane rizo Date: 8:09: 00 AM; Not Available [facility] 6 13:54:49 625441 morphine sulfate medicatio n Not available Not available Not available 03/17/20162012 65256 RxNorm Comme nt: Creat ed By: Deep escobar;Cr eated Date: 2012 12:43 :49 PM; Not Available [facility] 6 13:54:49 Medications Name Sig Start Date Stop Date Status Note LastModified by Organization Details LastModified Time Neurontin 300 mg capsule Three times a day active Frequency : tid;Medic ation Descripti on: gabapenti n; Dosage:1; Route:ora l; refills:5 Not Available Not Available Not Available Effexor XR 75 mg capsule,exte nded release Daily active Duration: 30 days;Freq uency: daily;Med ication Descripti on: venlafaxi ne; Dosage:1; Route:ora l; refills:1 2; Quantity: 30 capsule, extended release Not Available Not Available Not Available tizanidine 4 mg tablet Every eight hours active Frequency : q8h;Alt Frequency : prn;Medic ation Descripti on: tizanidin e; Dosage:1; Route:ora l; refills:0 Not Available Not Available Not Available glimepiride 1 mg tablet TAKE 1 TABLET (1 MG) BY ORAL ROUTE ONCE DAILY active Not Available Not Available No t Available bisoprolol fumarate 5 mg tablet TAKE 1 TABLET (5 MG) BY ORAL ROUTE ONCE DAILY active Not Available Not Available No t Available metformin 1,000 mg tablet Two times a day active Frequency : bid;Alt Frequency : with food;Medi cation Descripti on: metformin ; Dosage:1; Route:ora l; refills:5 ; Quantity: 60 tablet Not Available Not Available Not Available Synthroid 75 mcg tablet Daily active Frequency : daily;Med ication Descripti on: levothyro xine; Dosage:1; Route:ora l; refills:0 ; Quantity: 30 tablet Not Available Not Available Not Available aspirin 81 mg tablet Daily active Duration: 30 days;Freq uency: daily;Med ication Descripti on: aspirin; Dosage:1; Route:ora l; refills:0 ; Quantity: 30 tablet Not Available Not Available Not Available oxycodone-ac etaminophen 7.5 mg-325 mg tablet Every four to six hours active Frequency : q4-q6h;Al t Frequency : prn;Medic ation Descripti on: acetamino phen-oxyc odone; Dosage:1; Route:ora l; refills:0 Not Available Not Available Not Available losartan 100 mg-hydrochlo rothiazide 12.5 mg tablet Daily active Frequency : daily;Med ication Descripti on: hydrochlo rothiazid e-losarta n; Dosage:1; Route:ora l; refills:0 Not Available Not Available Not Available Vitamin D3 active Not Available Not Av ailable Not Available Vitals Date Recorded Body height Body mass index (BMI) Body weight Heart rate Systolic blood pressure Diastolic blood pressure Provider Name and Address Organization Details Last Updated DateTime 7 157.48 cm 27.6 kg/m2 66932.4 5 g 65 /min 124 mm[Hg] 62 mm[Hg] Anu Jean [facility] 7 13:50:22 Social History Question Answer Notes LastModified by Organizat ion Details LastModified Time Tobacco Smoking Status Current Every Day [facility] 03/22/2017 13:41:52 Live Alone Or With Others? With Others Information not available 03/22/2017 Marital Status Informatio n not available 03/22/2017 What Was The Date Of Your Most Recent Tobacco Screening? 03/22/2017 Information not available 06/11/2019 How Many Children Do You Have? 3 Information not available 03/22/2017 At What Age Did You Start Smoking Tobacco? 13 Information not available 03/22/2017 How Much Tobacco Do You Smoke? 1.5 PPD Information not available 03/22/2017 Has Tobacco Cessation Counseling Been Provided? Yes Information not available 03/22/2017 On What Date Was Tobacco Cessation Counseling Provided? 03/22/2017 Information not available 03/22/2017 How Many Years Have You Smoked Tobacco? 61 Information not available 03/22/2017 Sex: Unknown Functional Status Question Answer Note LastModified by Organizat ion Details LastModified Time What is your level of alcohol consumption? 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 Family History Relationship Description Onset Age of this Age Resolved Age Notes LastModified by Organization Details LastModified Time Unspecified Relation Heart disease Not available 2016 13:43:05 Unspecified Relation Diabetes mellitus Not available 2016 13:43:12 Unspecified Relation Hypertensive disorder Not available 2016 13:43:18 Unspecified Relation Family history of malignant neoplasm Not available 2016 13:43:25 Unspecified Relation Bleeding Not available 017 13:43:43 Mother Family history of stroke 99 Not available 2016 13:44:31 Father Myocardial infarction 64 Not available 03/22 13:44:16 Medical History Condition Response Diabetes Y High Cholesterol Y Thyroid Problems Y Hypertension Y Gynecological HistoryNo gynecological history recorded. Obstetrics History GPAL:G 0 P 0 0 0 0 Past Encounters Encounter ID Performer Location Encounter Start Date Encounter Closed Date Diagnosis/Indication Diagnosis SNOMED-CT Code Diagnosis ICD10 Code Diagnosis Note [id number] SANTHOSH RODRIGUEZ PA-C CARDIOLOG Y [address] [place] [id number] 03/22/2017 13:13:23 03/22/2017 16:56:06 Acute chest pain 139587351 R07.9 Hypertensive disorder 38 923779 I10 Tobacco de pendence syndrome 19196423 F17.977 [id number] BERNARDO IVORY MD [facility] [address] [place] [address] 5 04/13/2017 07:18:33 04/13/2017 10:58:42 [id number] MIKAELA MACHADO MD INTERNAL MEDICINE [address] 04/13/2017 09:21:40 04/18/2017 13:22:36 Chest pain 53076015 R07.9 Stress test was done today. Health Concerns Section Related Observation LastModified by Organization Detai ls LastModified Time None Recorded Concern Status LastModified by Organization Details LastModified Time None Recorded Advance Directives Directive None Recorded Payers Insurance Date Sequence Insurance Name Policy Number Policy Zepeda Covered Member ID Zepeda Member ID Guarantor Name 05/17/2017 2 [employer] (MEDICARE SUPPLEMENT) Shanika Castillo [id number] Shanika Castillo 04/10/2017 1 [place] Shanika Castillo [id number] Shanika Castillo 04/10/2017 2 [employer] (MEDICARE SUPPLEMENT) Shanika Castillo [id number] Shanika Castillo Notes Date Note Type Note Provider Name and Address Organization Details Recorded Time 03/22/2017 text/html Pleasant 71-year-old white female who is seen in consultation from Flynn Ren M.D. for evaluation of chest pain. She is a chronic smoker. She has history of hypertension and diabetes. There is also family history for premature CAD. She presented recently with an isolated episode of chest pain. She was lying on the couch. She developed severe crushing anterior chest discomfort that radiated down into her left arm. It last for couple of hours and then resolved. She's had no recurrent episodes. She has no prior cardiac history. She does report having had a stress test about 10 years ago. SANTHOSH RODRIGUEZ PA-C [address] [place], [address], [facility] 03/22/2017 14:52:52 OBGyn Episode No OBEpisode recorded.
== END 2024-10-11 23:59 | disposition home or self-care (01) ==
LOC: RAD 13:56
PROVIDERS: PCP Internal Medicine; Visit Provider Internal Medicine
DX: I63.9 Cerebral infarction, unspecified (principal); G81.94 Hemiplegia, unspecified affecting left nondominant side
CPT/HCPCS: 70450

== ENCOUNTER 2024-10-14 10:54 | Outpatient (CLI) | payer MEDICARE, SELFPAY ==
--- NOTE | 2024-10-14 11:00 | CA_ITS ---
FINAL REPORT CLINICAL HISTORY: acute CVA 09/08/24, HTN, smoker. COMPARISON: None FINDINGS: RIGHT CAROTID: CCA PSV -79 cm/sec ICA PSV -116 cm/sec ICA/CCA PSV ratio -2.05. Comments: Mild plaque disease is noted. LEFTCAROTID: CCA PSV -92. cm/sec ICA PSV -86. cm/sec ICA/CCA PSV ratio -1.6. Comments: Mild plaque disease is noted. Antegrade flow is seen within the vertebral arteries. IMPRESSION: Carotid stenosis classified less than 50% Reviewed, Interpreted and Dictated by Summer Aleman MD Transcribed by Val Vogel Authenticated and [facility]
--- OUTSIDE RECORDS SUMMARY | 2024-10-14 11:21 | XMS_ITS | Data Portability ---
Author Organization [facility] ELEAZAR [place] [facility]OSED Address [address] [facility] [address] [place] [address] Care Team Providers Care Grader Marker Name Role Phone FLYNN REN Primary Care Provider [phone] Assessment Encounter Date Assessment Date Assessment LastModified [...] None recorded. Imaging electrocard iogram 2016 017 [facility], [address] [place] [address] Dr, [facility], [place], [address], 7 16:56:07 Medication Orders None recorded. Patient TargetsNo targets recorded. Patient Instructions Encounter Date Encounter Id Patient Instructions Last Modified By Organization Details Last Modified Time 03/22/2017 [id number] Quitting Tobacco : Care Instructions Not available [...] LastModifiedBy Organization Detail LastModifiedTime 03/24/20 17 03/22/2017 paul lee am No observ ation record ed. [email or web address] [facility] [address] [place], [place], [address], 03/24/2017 12:09:26 Result Notes None recorded. 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 6520506 Active 2015 From Automated Load;Provi bradley: Cami Maza;Stat us: Active Not Available [facility] 6 05:16:31 Altered mental status 517575630 Active 2015 From Automated Load;Provi bradley: Cami Maza;Stat us: Active Not Available [facility] 6 05:16:31 Dizziness and giddiness 590063314 Active 2015 From Automated Load;Provi bradley: Cami Maza;Stat us: Active Not Available [facility] 6 05:16:31 Hypertens saima disorder 45474948 Active 2015 From Automated Load;Provi bradley: Cami Maza;Stat us: Active Not Available [facility] 6 05:16:31 Type 2 diabetes mellitus without complicat ion 058934722 Active 2015 From Automated Load;Provi bradley: Cami Maza;Stat us: Active Not Available [facility] 6 05:16:31 Acute chest pain 258819989 Active 2016 SANTHOSH RODRIGUEZ PA-C [address] [place], [address] , [place] [facility] 7 14:48:06 Tobacco dependenc e syndrome 43626789 Active 2016 SANTHOSH RODRIGUEZ PA-C [address] [place], [address] , [place] [facility] 7 14:48:18 Problem Notes Documentation Provider Name and Address Organization Details Recorded Time Lexiscan Cardiolite Stress Test (proc) : [facility] [address], [facility] [address]VAPIY, LINDA K (id #[id number], : 1945) [facility] [address] [place] [address] Encounter Summary - Progress Note Date Printed: [...] received this fax in error, please visit [email or web address] to notify the sender and confirm that the information will be destroyed. If you do not have internet access, please call to notify the sender and confirm that the information will be destroyed. Thank you for your attention and cooperation. [ID:[id number]] Patient Shanika Castillo (71yo, F) #[id number] 1945 Patient Demographics: Address [address] [address] Work Phone Encounter Notes: Encounter Reason/DateNone recorded 04/13/2017 - 07:45AM - [facility] Procedure DocumentationStress Test - Nuclear Lexiscan:Referring Physician: TORRIE Alvarado Cc Physician: Flynn Ren MD Clinical Data: CP Medications: See above IV: IV Saline Lock #[id number] RAC LEXISCAN Dose: 0.4 mg/5mL [facility]# [id number] Expiration Date: LOT#: [id number] Resting ECG was [...] ST-T change. Nausea during stress test. Mikaela Mahcado MD Comments: Normal EKG response to infusion per Dr. Machaod. Symmetric perfusion without redistribution: Negative for ischemia. Radionuclide angiogram: NML with LVEF = 69 %. Impression: Study Negative for ischemia with normal systolic function Electronically Signed by: BERNARDO IVORY MD SANTHOSH RODRIGUEZ PA-C [address] [place], [address], [facility] 04/19/2017 16:56:05 Procedures Surgical History Date Name Laterality Status Provider Name and Address Organization Details Recorded Time 04/13/20 17 Stress Test - Nuclear Lexiscan completed BERNARDO IVORY MD [address] [place], [place], [address] [place] [address], [facility] 04/13/2017 10:49:43 03/22/20 17 EKG completed SANTHOSH RODRIGUEZ PA-C [address] [place], [address], [facility] 03/22/2017 14:47:28 Removal of thyroid completed [facility] 03/22/2017 13:45:10 Cholecystectomy completed [facility] 03/22/2017 13:45:33 Appendectomy completed [facility] 03/22/2017 13:45:45 Other completed [facility] 03/22/2017 13:46:03 Imaging Results None recorded. Procedure Notes None recorded. Medical Equipment None Reported. Allergies Allergen ID Allergen Name Allergen Category Reaction Reaction Severity Criticality Documentation Date Start Date Code Code System Note Provider Name and Address Organization Details Recorded Time 785767 Flagyl medicatio n Not available Not available Not available 03/17/20162015 47350 6 RxNorm Comme nt: Creat ed By: Josiane rizo Date: 8:08: 46 AM; Not Available [facility] 6 13:54:49 521659 prednison e medicatio n Not available Not available Not available 03/17/20162012 8640 RxNorm Comme nt: Creat ed By: Deep escobar;Cr eated Date: 2012 12:44 :19 PM; Not Available [facility] 6 13:54:49 535647 adhesive tape environme nt,medica tion Not available Not available Not available 03/17/20162015 11146 UNK Comme nt: Creat ed By: Josiane prieto d Date: 8:09: 00 AM; Not Available [facility] 6 13:54:49 908694 morphine sulfate medicatio n Not available Not available Not available 03/17/20162012 95608 RxNorm Comme nt: Creat ed By: Deep escobar;Cr eated Date: 2012 12:43 :49 PM; Not Available [facility] 6 13:54:49 Medications Name Sig Start Date [...] Updated DateTime 7 157.48 cm 27.6 kg/m2 37089.4 5 g 65 /min 124 mm[Hg] 62 mm[Hg] Anu Clines [facility] 7 13:50:22 Social History Question Answer Notes LastModified by Organizat ion Details LastModified Time Tobacco Smoking Status Current Every Day Smoker Anu Jean [facility] 03/22/2017 13:41:52 Live Alone Or With [...] available 03/22 13:44:16 Medical History Condition Response Thyroid Problems Y Diabetes Y High Cholesterol Y Hypertension Y Gynecological HistoryNo gynecological history recorded. Obstetrics History GPAL:G 0 P 0 0 0 0 Past Encounters Encounter ID Performer Location Encounter Start Date Encounter Closed Date Diagnosis/Indication Diagnosis SNOMED-CT Code Diagnosis ICD10 Code Diagnosis Note [id number] SANTHOSH RODRIGUEZ PA-C CARDIOLOG Y [address] 5 03/22/2017 13:13:23 03/22/2017 16:56:06 Acute chest pain 682491235 R07.9 Hypertensive disorder 38 627471 I10 Tobacco de pendence syndrome 64467525 F17.385 [id number] BERNARDO IVORY MD [facility] [address] [place] [address] 5 04/13/2017 07:18:33 04/13/2017 10:58:42 [id number] MIKAELA MACHADO MD INTERNAL MEDICINE [address] ,[address] [place] [address] 5 04/13/2017 09:21:40 04/18/2017 13:22:36 Chest pain 73355733 R07.9 Stress test was done today. Health Concerns Section Related Observation LastModified by Organization Detai ls LastModified Time None Recorded Concern Status LastModified by Organization Details LastModified Time None Recorded Advance Directives Directive None Recorded Payers Insurance Date Sequence Insurance Name Policy Number Policy Zepeda Covered Member ID Zepeda Member ID Guarantor Name 05/17/2017 2 [employer] (MEDICARE SUPPLEMENT) Shanika Castillo [id number] Shanika Castillo 04/10/2017 1 [place] Shanika Castillo [id number] Shanika Castillo 04/10/2017 2 [employer] (MEDICARE SUPPLEMENT) Shanika Castillo [id number] Shanika Castillo Notes Date Note Type Note [...] years ago. SANTHOSH RODRIGUEZ PA-C [address] [place], [address], [facility] 03/22/2017 14:52:52 OBGyn Episode No OBEpisode recorded.
--- OUTSIDE RECORDS SUMMARY | 2024-10-14 11:21 | XMS_ITS | Clinical Summary ---
Author Organization Healthcare Address [address] [place] [address] Care Team Providers Care Transformer Coil Winder Name Role Phone Flynn Sheldon MD Primary Care Provider [phone] Family History Medical History Relation Name Comments [...] of Treatment Not on file Care Teams Transformer Coil Winder Relationship Specialty Start Date End Date Flynn Sheldon MD [address] [facility] [address] [place] [id number] PCP - General 09/04/20
== END 2024-10-14 23:59 | disposition home or self-care (01) ==
PROVIDERS: PCP Internal Medicine; Visit Provider Internal Medicine
DX: I63.233 Cerebral infarction due to unspecified occlusion or stenosis of bilateral carotid arteries (principal); I10 Essential (primary) hypertension; F17.200 Nicotine dependence, unspecified, uncomplicated
CPT/HCPCS: 93880

== ENCOUNTER 2024-11-12 15:08 | Outpatient (CLI) | payer MEDICARE, SELFPAY ==
--- OUTSIDE RECORDS SUMMARY | 2024-11-12 15:11 | XMS_ITS | Clinical Summary ---
Author Organization Healthcare Address [address] [place] [address] Care Team Providers Care Duplication Specialist Name Role Phone Flynn Sheldon MD Primary Care Provider [phone] Family History Medical History Relation Name Comments [...] of Treatment Not on file Care Teams Duplication Specialist Relationship Specialty Start Date End Date Flynn Sheldon MD [address] [facility] [address] [place] [id number] PCP - General 09/04/20
--- OUTSIDE RECORDS SUMMARY | 2024-11-12 15:11 | XMS_ITS | Clinical Summary ---
Author Organization [facility] Address [address] [place] [address] Care Team Providers Care Assistant Executive Housekeeper Name Role Phone Flynn Sheldon MD Primary Care Provider [phone] Allergies Active Allergy Reactions Criticality Noted Date Comments Metronidazole Rash Low 06/19/2022 Morphine Anaphylaxis High 06/19/2022 Prednisone Rash Low 06/19/2022 redness Medications pioglitazone (ACTOS) 15 MG tablet TAKE 1 TABLET BY MOUTH ONCE DAILY FOR SUGAR AND FATTY LIVER 3 Active glimepiride (AMARYL) 1 MG tablet glimepiride 1 mg tablet TAKE 1 TABLET (1 MG) BY ORAL ROUTE ONCE DAILY Active levothyroxine (SYNTHROID, LEVOTHROID) 88 MCG tablet take 1 tablet by mouth once daily in the morning for 90 days 3 Active tiZANidine (ZANAFLEX) 4 MG tablet TAKE 1 TABLET BY MOUTH EVERY 8 HOURS NEEDED FOR SPASMS 2 Active losartan (COZAAR) 100 MG tablet Take 1 tablet by mouth Daily. 3 Active albuterol sulfate HFA 108 (90 Base) MCG/ACT inhaler INHALE 2 PUFFS BY MOUTH EVERY 6 HOURS NEEDED FOR SHORTNESS OF BREATH OR WHEEZING 3 Active venlafaxine XR (EFFEXOR-XR) 75 MG 24 hr capsule Take 1 capsule by mouth Daily. 3 Active HYDROcodone-margaux taminophen (NORCO) 7.5-325 MG per tablet TAKE 1 TABLET BY MOUTH EVERY 4 TO 6 HOURS FOR 30 DAYS 3 Active aspirin 81 MG EC tablet Take 1 tablet by mouth Daily. Active Cholecalciferol (Vitamin D3) 50 MCG (2000 UT) capsule Take 1 capsule by mouth Daily. Active gabapentin (NEURONTIN) 300 MG capsule Take 1 capsule by mouth 2 (Two) Times a Day As Needed. Active HYDROcodone-margaux taminophen (NORCO) 5-325 MG per tablet Take 1 tablet by mouth Every 4 (Four) to 6 (Six) Hours As Needed. 10 tablet Active Active Problems Problem Noted Date Diagnosed Date Pre-op evaluation 07/07/2022 Family History Medical History Relation Name Comments Diabetes Brother 1 Diabetes Brother 2 Heart attack Father Stroke Mother Breast cancer Sister Relation Name Status Comments Brother 1 Alive Brother 2 Alive Father ore miner blasting Mother Sister Social History Tobacco Use Types Packs/Day Years Used Date Smoking Tobacco: Every Day Cigarettes Smokeless Tobacco: Never Tobacco Cessation:Counseling Given: Not Answered Alcohol Use Standard Drinks/Week Comments Never 0 (1 standard drink = 0.6 oz pur e alcohol) Abuse Screen Answer Date Recorded Unsafe at Home or Work/School Not on file Feels Threatened by Someone? Not on file 10/2023 Does Anyone Keep You from Co ntacting Others or Doint Things Outside the Home? Not on file 06/29/2023 Physical Sign of Abuse Present Not on file 0 06/29/2023 Housing Stability Answer Date Recorded Current Living Arrangements Not on file 12/2022 Potentially Unsafe Housing Conditions Not on ricardo e 01/30/2023 Family and Community Support Answer Willie e Recorded Help with Day-to-Day Activities Not on file 01/30/2023 Lonely or Isolated Not on file 01/30/2023 Employment Answer Date Recorded Do you want help finding or keeping work or a yoni b? Not on file 01/30/2023 Disabilities Answer Date Recorded Concentrating, Remembering, or Making Decisions Difficulty Not on file 01/30/2023 Doing Errands Independently Difficulty Not on fi le 01/30/2023 Education Answer Date Recorded Help with school or training? Not on file Preferred Language Not on file 01/30/2023 Comments Unknown Sex and Gender Information Value Date Recorded Sex Assigned at Not on file Legal Sex Female 11:01 AM EDT Gender Identity Not on file Sexual Orientation Not on file Last Filed Vital Signs Vital Sign Reading Time Taken Comments Blood Pressure 144/76 07/08/2022 1:59 PM EDT Pulse 68 07/08/2022 1:59 PM EDT Temperature 37.1 C (98.7 F) 06/19/2022 2:45 PM EST Respiratory Rate 16 06/19/2022 8:32 PM EST Oxygen Saturation 97% 07/07/2022 10:11 AM EDT Inhaled Oxygen Concentration - - Weight 69.9 kg (154 lb) 07/08/2022 1:59 PM EDT Height 157.5 cm (5' 2 ) 07/08/2022 1:59 PM EDT Body Mass Index 28.17 07/08/2022 1:59 PM EDT Plan of Treatment Health Maintenance Due Date Last Done Comments DXA SCAN 1945 Pneumococcal Vaccine 50+ (1 of 2 - PCV) 1966 TDAP/TD VACCINES (1 - Tdap) 1966 ZOSTER VACCINE (1 of 2) 1997 RSV Vaccine - Adults (1 - 1-dose 75+ series) ANNUAL WELLNESS VISIT 07/04/2022 HEPATITIS C SCREENING 07/04/2022 COVID-19 Vaccine ( - 2023- season) 2023 INFLUENZA VACCINE 01/22/2025 Insurance MEDICARE A & B [facility] OPTIONS Care Teams Assistant Executive Housekeeper Relationship Specialty Start Date End Date Flynn Sheldon MD [address] [facility] [address] [place] [facility] [address] PCP - General Internal Medicine 06/19/22
--- NOTE | 2024-11-12 15:30 | CT_ITS ---
FINAL REPORT CLINICAL HISTORY: lung cancer screening patient is a current smoker. she smokes approximately 11-12 cigarettes a day. she has been a smoker for 66 years. patient has COPD. COMPARISON: 10/16/2023 FINDINGS: CT CHEST LOW DOSE SCREENING HISTORY: Screening exam for lung cancer. DOSE: CTDI vol: 2.90 mGy, DLP: 99.51 mGy*cm TECHNIQUE: Axial CT without IV contrast administration using low dose protocol. This study was performed with techniques to keep radiation doses as low as reasonably achievable, (ALARA). Individualized dose reduction techniques using automated exposure control or adjustment of mA and/or kV according to the patient's size were employed. No acute lung disease is present. There is a stable left lower lobe 4 mm nodule on image 50 of series 3. Emphysematous change is noted. There is evidence of old calcified granulomatous disease. No pleural or pericardial effusion is seen. No adenopathy or mass lesion is present. Limited images of the upper abdomen demonstrate mild splenomegaly. IMPRESSION: Stable left lower lobe nodule. LUNG RADS CATEGORY 2 RECOMMENDATION: 12 month LDCT follow up Reviewed, Interpreted and Dictated by Summer Aleman MD Transcribed by Bettina Lora Authenticated and [facility] [place]
== END 2024-11-12 23:59 | disposition home or self-care (01) ==
LOC: RAD 15:09
PROVIDERS: PCP Internal Medicine; Visit Provider Internal Medicine Pulmonary Disease
DX: R91.1 Solitary pulmonary nodule (principal); F17.210 Nicotine dependence, cigarettes, uncomplicated; Z12.2 Encounter for screening for malignant neoplasm of respiratory organs
CPT/HCPCS: 71271

== ENCOUNTER 2025-01-14 09:25 | Outpatient (CLI) | payer MEDICARE, SELFPAY ==
[2025-01-14 15:12] LABS: Hematocrit 39.2 % (37.0-47.0); Hemoglobin 12.7 g/dL (12.2-16.2); Immature Granulocytes % 0.2 %; Mean Corpuscular HGB Conc 32.4 g/dL (31.8-35.4); Mean Corpuscular Hemoglobin 28.2 pg (27.0-31.2); Mean Corpuscular Volume 86.9 fl (81-99); Nucleated Red Blood Cells % 0 %; Platelet Count 197 K/mm3 (142-424); Red Blood Count 4.51 M/mm3 (4.20-5.40); Red Cell Distribution Width-SD 43.7 fL; White Blood Count 5.1 K/mm3 (4.8-10.8)
[2025-01-14 15:58] LABS: Albumin Level 4.3 g/dl (3.5-5.0); Chloride 102 mmol/L (98-107); Potassium 4.7 mmoL/L (3.5-5.1); Sodium 137 mmol/L (136-145)
[2025-01-14 16:00] LABS: Blood Urea Nitrogen 18 mg/dl (7-17); Creatinine,Serum 1.00 mg/dl (0.52-1.04); Estimated Glomerular Filt Rate 54 ml/min (>60); GFR (African American) 65 ML/MIN (>60)
[2025-01-14 16:01] LABS: Alanine Aminotransferase 12 U/L (12-78); Albumin/Globulin Ratio 2.3 (1.1-1.8); Alkaline Phosphatase 83 U/L (38-126); Anion Gap 14.7 mEq/L (5-15); Aspartate Amino Transferase 27 U/L (14-36); Bilirubin,Total 0.5 mg/dl (0.2-1.3); Calcium 8.8 mg/dl (8.4-10.2); Carbon Dioxide 25 mmol/L (22.0-30.0); Cholesterol 169 mg/dl (140-200); Creatine Kinase 118 U/L (30-135); Globulin 1.9 g/dL (1.3-3.2); Glucose 113 mg/dl (74-100); HDL Cholesterol 42 mg/dl (40-60); Total Protein,Serum 6.2 g/dl (6.3-8.2); Triglycerides 80 mg/dl (30-150)
[2025-01-14 16:19] LABS: Hemoglobin A1C 6.5 % (4.0-6.0)
[2025-01-14 16:34] LABS: Thyroid Stimulating Hormone 1.85 uIU/mL (0.465-4.68)
--- OUTSIDE RECORDS SUMMARY | 2025-01-15 10:11 | XMS_ITS | Clinical Summary ---
Author Organization [facility] Address [address] [place] [address] Care Team Providers Care Fowl Blood Tester Name Role Phone Flynn Sheldon MD Primary Care Provider [phone] Allergies Active Allergy Reactions Criticality Noted Date [...] Brother 1 Alive Brother 2 Alive Father qualifications examiner Mother Sister Social History Tobacco Use Types [...] WELLNESS VISIT 07/04/2022 HEPATITIS C SCREENING 07/04/2022 INFLUENZA VACCINE 11/22/2024 COVID-19 Vaccine ( - season) 2024 Insurance MEDICARE A & B [facility] OPTIONS Care Teams Fowl Blood Tester Relationship Specialty Start Date End Date Flynn Sheldon MD [address] [facility] [address] [place] [address] PCP - General Internal Medicine 06/19/22
--- OUTSIDE RECORDS SUMMARY | 2025-01-15 10:11 | XMS_ITS | Clinical Summary ---
Author Organization Healthcare Address [address] [place] [address] Care Team Providers Care Ethernet Network Architect Name Role Phone Flynn Sheldon MD Primary Care Provider [phone] Family History Medical History Relation Name Comments [...] of Treatment Not on file Care Teams Ethernet Network Architect Relationship Specialty Start Date End Date Flynn Sheldon MD [address] [facility] [address] [place] [id number] PCP - General 09/04/20
[2025-01-15 15:17] LABS: Antinuclear Antibodies (ANA) Positive (Negative)
== END 2025-01-14 23:59 | disposition home or self-care (01) ==
LOC: LAB.DROPOF 01-15 10:03
PROVIDERS: PCP Internal Medicine; Visit Provider Internal Medicine
DX: K75.81 Nonalcoholic steatohepatitis (NASH) (principal); I10 Essential (primary) hypertension; E11.42 Type 2 diabetes mellitus with diabetic polyneuropathy; E78.5 Hyperlipidemia, unspecified; M25.50 Pain in unspecified joint; M79.10 Myalgia, unspecified site; E03.9 Hypothyroidism, unspecified
CPT/HCPCS: 80053; 80061; 82550; 83036; 84443; 85025; 86038